=== PATIENT | female | born 1930 | race African-American/Black ===

== ENCOUNTER 2017-02-13 12:54 | Emergency (ER) | payer SELFPAY ==
[~2017-02-13] VITALS: Ht 152.4 cm; Wt 43.3 kg
[2017-02-13] MEDS ORDERED: [UNRECOGNIZED DRUG - CODE] TP (13:17)
[2017-02-13] MEDS ORDERED: STATIN (13:17)
[2017-02-13] MEDS ORDERED: AMLO10TA80 PO (13:17)
[2017-02-13] MEDS ORDERED: DONE5TAB7 PO (13:17)
[2017-02-13] MEDS ORDERED: LEVO25TA7 PO (13:17)
[2017-02-13] MEDS ORDERED: QUET25TA PO (13:17)
[2017-02-13] MEDS ORDERED: CHOL100046 PO (13:17)
[2017-02-13] MEDS ORDERED: MORPHINE SULFATE 1MG/ML 1ML INJ SYR(NEO) IV ONE (14:15)
[2017-02-13] MEDS ORDERED: SODIUM CHLORIDE 0.9% 1000ML BAG (SEPSIS BOLUS) IV ONE (14:15)
[2017-02-13] MEDS ORDERED: ONDANSETRON HCL 4MG/2ML VIAL IV ONE (14:15)
[2017-02-13 14:38] LABS: PROTHROMBIN TIME 10.4 sec (9.4-11.6)
[2017-02-13 14:42] LABS: BASOPHILS % 0.8 % (0.0-2.0); EOSINOPHILS % 0.4 % (0.0-5.0); HEMATOCRIT. 41.7 % (36.0-48.0); LYMPHOCYTES % 27.6 % (20.0-50.0); MEAN CORPUSCULAR VOLUME 86.6 fL (81.0-99.0); MEAN PLATELET VOLUME 8.2 fl (7.4-10.4); MONOCYTES % 6.9 % (2.0-8.0); NEUTROPHILS % 64.3 % (40.0-76.0); PLATELET 256 x1000/uL (130-400); RED BLOOD CELL COUNT 4.81 mill/uL (4.2-5.4); RED CELL DISTRIBUTION WIDTH 14.7 % (11.6-14.6)
[2017-02-13 14:45] LABS: CARBON DIOXIDE 32 mEq/L (21-32); CHLORIDE 106 mEq/L (98-107)
[2017-02-13] MEDS ORDERED: MORPHINE SULFATE 4 MG/ML CPJ (NOT FOR IM USE) IV ONE (14:45)
[2017-02-13 15:04] LABS: CLARITY URINE CLEAR (CLEAR); COLOR URINE YELLOW (YELLOW); GLUCOSE URINE NEGATIVE (NEGATIVE); KETONES URINE NEGATIVE (NEGATIVE); LEUKOCYTE ESTERASE URINE 1+ (NEGATIVE); NITRITE URINE NEGATIVE (NEGATIVE); OCCULT BLOOD URINE NEGATIVE (NEGATIVE); PROTEIN URINE NEGATIVE (NEGATIVE); SPECIFIC GRAVITY URINE 1.006 (1.005-1.030); UROBILINOGEN URINE 0.2 E.U./dL (0.2-1.0)
[2017-02-13 16:39] VITALS: BP 152/90
== END 2017-02-13 19:02 | disposition home or self-care (01) ==
LOC: ER 12:54
DX: N39.0 Urinary tract infection, site not specified (principal); R91.1 Solitary pulmonary nodule; K59.00 Constipation, unspecified; E05.90 Thyrotoxicosis, unspecified without thyrotoxic crisis or storm; I10 Essential (primary) hypertension; G30.9 Alzheimer's disease, unspecified; E78.00 Pure hypercholesterolemia, unspecified; Z86.73 Personal history of transient ischemic attack (TIA), and cerebral infarction without residual deficits
CPT/HCPCS: 36415; 74176; 80053; 81001; 83690; 85025; 85610; 96361; 96374; 99285; J2270; J2405; J7030; Z7610